=== PATIENT | female | born 1985 | race Caucasian/White ===

== ENCOUNTER 2024-03-28 06:01 | Emergency (ER) | payer OTHER, SELFPAY ==
[2024-03-28 06:02] VITALS: BMI 33.0
[2024-03-28 06:04] VITALS: BP 130/90
--- NOTE | 2024-03-28 06:11 | ED.GENMED ---
History of Present Illness
General
Chief Complaint: Musculo-Skeletal Complaint
Time Seen by Provider: 03/28/24 06:11
History of Present Illness
History of Present Illness:
TIME OF INITIAL ENCOUNTER: 6:15 AM
HPI: The patient tripped down 2 steps and primarily was turned to pain at the right ankle. She has been nonambulatory since that time due to the rather significant pain. She also bumped her head lightly but is not concerned about that. She denies
any other injury
EXAM:
GENERAL: Well appearing but in mild distress due to pain in the right
HEAD: No evidence of craniofacial trauma
HEENT: Moist oral mucosa
NEUROLOGIC: Excellent strength all extremities, no obvious coordination deficits
PSYCHIATRIC: Appropriate mental status, normal insight and judgement
EXTREMITIES: Nontender, no edema, moves all extremities equally other than some decreased active range of motion at the right ankle, there is no bony tenderness at the right foot or ankle. No abnormal findings at the right knee. No significant
soft tissue swelling. Achilles is intact.
SKIN: No rash, no lesions
NUMBER AND COMPLEXITY OF PROBLEMS ADDRESSED AT THE ENCOUNTER
� Chronic conditions affecting care: Inappropriate sinus tachycardia, vertical sleeve gastrectomy, asthma
� Acute Exacerbation and/or Progression of Chronic Illness: This is an acute problem
� Differential Diagnosis includes: Ankle sprain, ankle fracture, foot sprain, foot fracture
AMOUNT AND/OR COMPLEXITY OF DATA TO BE REVIEWED AND ANALYZED
� I performed an independent evaluation of and my interpretation is:
EKG:
CT:
X-rays: I personally reviewed x-rays and see no evidence of fracture
Laboratory Studies:
Other:
� Review of other/old records: I reviewed records, the patient was seen here in February 2022
� Clinical information was obtained by an independent historian:
� Prescriptions/Medications Considered but not given: Considered Motrin however the patient has history of sleeve gastrectomy therefore will only use Tylenol
� Further testing considered but not performed: No indication for MRI at this point
RISK OF COMPLICATIONS AND/OR MORBIDITY OR MORTALITY OF PATIENT MANAGEMENT
� Social determinants of health affecting care: Lives at home
� Discussion with other providers:
� Escalation of care including admission/observation vs risk of discharge considered: X-ray obtained. Air splint and crutches given.
ANY OTHER UPDATES:
Past History
Past History
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
ED Past Surgical History: Other (gastric sleeve ')
Social History
Tobacco: Non-smoker
Phy Exam
Physical Exam
Physical Exam:
See HPI
Course
Orders/Labs/Results
Orders:
Orders
03/28/24 06:07
Ankle, Right 3 view CR [CR Ankle - Right Min 3 Views *] Urgent
Comment:
Reason For Exam: FALL FELT A POP/CRACK
03/28/24 06:22
Air Splint Right-Treatment ONCE
Crutches-Treatment ONCE
Acetaminophen [Tylenol] 1,000 mg PO NOW STA
Vital Signs
Initial and Last Documented VS:
Initial Vital Signs
Temp Pulse Resp BP Pulse Ox
98.1 F 98 16 130/90 98
03/28/24 06:04 03/28/24 06:04 03/28/24 06:04 03/28/24 06:04 03/28/24 06:04
Last Documented Vital Signs
Temp Pulse Resp BP Pulse Ox
98.1 F 98 16 130/90 98
03/28/24 06:04 03/28/24 06:04 03/28/24 06:04 03/28/24 06:04 03/28/24 06:04
*Critical Care Note
Total Time (30-74mins, 75-104mins- exclusive of procedures): Not Applicable
ED Attending Note
-
Portions of this chart may have been created with voice recognition software.� Occasional wrong word or��sound alike� substitutions may have occurred due to the inherent limitations of voice recognition software.
Discharge Plan
Departure
Patient Disposition: Home (Routine Discharge)
Date of Disposition: 03/28/24
Time of Disposition: 06:23
Patient with high blood pressure during this ER visit?: Yes
Discharge Problem:
Right ankle sprain
Instructions: Ankle Sprain ED
Referrals:
Melody Paulson I., DO [Active] - Follow up in 2-3 days
Activity Restrictions/Additional Instructions:
Tylenol would be safest for pain. I see no sign of fracture on the x-ray. If pain persists, follow-up with orthopedics such as Dr. Paulson.
Interventions
Interventions:
*Risk Screen - Suicide Last Done: 03/28/24 06:04
*General Assessment Last Done: 03/28/24 06:22
*Neglect/Abuse Screening Last Done: 03/28/24 06:04
*ED COVID-19 Vaccine History Last Done: 03/28/24 06:22
ED-Musculoskeletal Assessment Last Done: 03/28/24 06:21
Discharge Date and Time
Print Language: ICELANDIC
[2024-03-28] MEDS: TYLENOL 1000 MG PO (06:25)
== END 2024-03-28 06:50 | disposition home or self-care (01) ==
LOC: EMR 06:01
PROVIDERS: EMERGENCY PHYSICIAN Emergency Medicine; FAMILY PHYSICIAN Internal Medicine
DX: S93.401A Sprain of unspecified ligament of right ankle, initial encounter (principal); W10.9XXA Fall (on) (from) unspecified stairs and steps, initial encounter; J45.909 Unspecified asthma, uncomplicated
CPT/HCPCS: 29515; 99283; 73610

== ENCOUNTER → 2024-04-05 14:22 | Outpatient (REF) | payer OTHER, SELFPAY | LOC: RAD 14:22 | PROVIDERS: ATTENDING PHYSICIAN Physician Assistant Medical | DX: M79.671 Pain in right foot (principal) | CPT/HCPCS: 73630 ==

== ENCOUNTER 2024-09-24 07:47 | Emergency (ER) | payer OTHER, SELFPAY ==
[2024-09-24 07:55] VITALS: BP 111/88
[2024-09-24] MEDS: DUONEB 3 ML INH (08:00)
[2024-09-24 08:07] VITALS: BP 111/88
--- NOTE | 2024-09-24 08:10 | ED.GENMED ---
History of Present Illness
General
Chief Complaint: Breathing Problem
Time Seen by Provider: 09/24/24 07:53
History of Present Illness
History of Present Illness:
39-year-old female with history of asthma presents to the emergency department for evaluation of abrupt onset of shortness of breath and chest tightness beginning at 7 AM today. She has used albuterol MDI several times with minimal improvement.
Reports pleuritic discomfort as well. Feels comparable to past bouts of asthma. No recent fevers or chills. Persistent dry cough noted on arrival. She has contraceptive implant, not on estrogen. She did also undergo a foot surgery approximately
2 months ago and was wearing an orthopedic boot for 1 month but denies any calf pain or leg swelling at this time. No prior history of VTE
Past History
Past History
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
ED Past Surgical History: Other (gastric sleeve '14)
Social History
Tobacco: Non-smoker
Review of Systems
Review of Systems
Allergies reviewed?: Yes
All Other Systems: ROS reviewed and negative except as documented in HPI and ROS
Phy Exam
Physical Exam
Physical Exam:
GEN: Well appearing, NAD, WDWN
HEENT: Oral mucosa moist, no scleral icterus
Cardiac: Profoundly tachycardic, regular
Lung: Frequent dry cough, unable to take full inspiration, lungs are globally clear with no wheezes or rales
MSK: No gross deformity or injuries, no calf edema or tenderness
Skin: Good color, no pallor or jaundice, no rashes
Neuro: AO x3, moves all extremities freely
Psych: Calm, cooperative
Course
Orders/Labs/Results
Orders:
Orders
09/24/24
Electrocardiogram (*1) Stat
Reason for Study: Tachycardia
09/24/24 07:57
Ipratropium/Albuterol Sulfate [Duoneb] 3 ml INH R NOW ONE
Test Result ONCE
CR Chest Portable - 1 View Urgent
Comment:
Reason For Exam: SOB
Reason Study Needs to be Portable: Other
09/24/24 08:04
Complete Blood Count/With Diff Urgent
Comprehensive Metabolic Panel Urgent
D-Dimer Urgent
HCG, Serum Qualitative Screen Urgent
09/24/24 09:41
CT Chest PE Study Urgent
Comment:
Reason For Exam: SOB, elevated dimer
Abnormal Lab Results
09/24/24
08:04
Plt Count 467 H 10^3/uL
(130-400)
D-Dimer 0.62 H ug/mlFEU
(0.00-0.50)
09/24/24 08:04
09/24/24 08:04
Vital Signs
Initial and Last Documented VS:
Initial Vital Signs
Pulse Resp Pulse Ox
160 20 99
09/24/24 07:50 09/24/24 07:50 09/24/24 07:50
Last Documented Vital Signs
Temp Pulse Resp BP Pulse Ox
98.4 F 118 19 129/85 99
09/24/24 08:07 09/24/24 11:00 09/24/24 11:00 09/24/24 10:30 09/24/24 10:45
MDM/Problems Addressed
MDM/Problems Addressed:
Imaging obtained due to elevated D-dimer in the presence of shortness of breath and clear lungs, this was reassuring. Likely symptoms secondary to asthma exacerbation. Improved at time of discharge. Will cover for bronchospasm with steroids and
new inhalers provided
*Critical Care Note
Total Time (30-74mins, 75-104mins- exclusive of procedures): Not Applicable
ED Attending Note
-
Portions of this chart may have been created with voice recognition software.� Occasional wrong word or��sound alike� substitutions may have occurred due to the inherent limitations of voice recognition software.
Discharge Plan
Departure
Patient Disposition: Home (Routine Discharge)
Date of Disposition: 09/24/24
Time of Disposition: 10:58
Patient with high blood pressure during this ER visit?: No
Discharge Problem:
Acute bronchospasm
Instructions: Asthma, Adult (DC)
Prescriptions:
New
methylprednisolone [Medrol (Chaim)] 4 mg tablets,dose pack
See Rx Instructions .ROUTE .COMPLEX Qty: 21 0RF
Rx Instructions:
for 6 days
albuterol sulfate 90 mcg/actuation HFA aerosol inhaler
2 puff inhalation Q6H PRN (Reason: shortness of breath or wheezing) Qty: 6.7 0RF
Referrals:
James Lea MD [Family Provider] -
Interventions
Interventions:
*Risk Screen - Suicide Last Done: 09/24/24 07:50
*General Assessment Last Done: 09/24/24 08:10
*Neglect/Abuse Screening Last Done: 09/24/24 07:50
*ED- Fall Risk Assessment Last Done: 09/24/24 08:10
*ED COVID-19 Vaccine History Last Done: 09/24/24 08:10
*Nursing Disposition Last Done: 09/24/24 11:05
ED- Cardiac Assessment Last Done: 09/24/24 08:08
ED- Pulmonary Assessment Last Done: 09/24/24 08:08
Discharge Date and Time
Discharge Date/Time: 09/24/24 11:06
Print Language: YAKUT
[2024-09-24 08:11] LABS: % Basophils 0.9 % (0-2); % Immature Granulocytes 0.1 % (0-0.5); % Lymphocytes 31.1 % (20.5-51.1); % Monocytes 7.7 % (1.7-9.3); % Neutrophils 59.2 % (42.2-75.2); Absolute Basophils 0.1 10^3/uL (0-0.2); Absolute Eosinophils 0.1 10^3/uL (0-0.7); Absolute Lymphocytes 2.5 10^3/uL (1.2-3.4); Absolute Monocytes 0.6 10^3/uL (0.1-0.6); Absolute Neutrophils 4.8 10^3/uL (1.4-6.5); Hematocrit 40.1 % (37.0-47.0); Hemoglobin 13.5 g/dL (12.0-16.0); Mean Corp Hgb Conc. 33.7 g/dL (33.0-37.0); Mean Corpuscular Volume 83.2 fL (81.0-99.0); Mean Platelet Volume 9.5 fL (7.4-10.4); Nucleated Red Blood Cells % 0 %; Platelet Count 467 10^3/uL (130-400); Red Blood Cell Count 4.82 10^6/uL (4.20-5.40); Red Cell Dist. Width 13.5 % (11.5-14.5); White Blood Cell Count 8.1 10^3/uL (4.8-10.8)
[2024-09-24 08:12] VITALS: BP 129/89; BMI 35.3
[2024-09-24 08:25] LABS: HCG, Serum Qualitative Screen Negative
[2024-09-24 08:27] LABS: D-Dimer 0.62 ug/mlFEU (0.00-0.50)
[2024-09-24 08:35] LABS: ALT (SGPT) 17 U/L (0-35); AST (SGOT) 20 U/L (14-36); Albumin 4.8 g/dl (3.5-5.0); Alkaline Phosphatase 71 U/L (38-126); Blood Urea Nitrogen 10 mg/dl (7-17); Calcium 9.8 mg/dl (8.4-10.2); Carbon Dioxide 23 mmol/L (22-30); Chloride 105 mmol/L (98-107); Estimated Creatinine Clearance > 125 ml/min; Glucose 90 mg/dl (70-99); Potassium 3.6 mmol/L (3.5-5.1); Sodium 142 mmol/L (135-145); Total Bilirubin 0.8 mg/dl (0.2-1.3); Total Protein 7.6 g/dl (6.3-8.2); eGFR > 60.00
[2024-09-24 09:00] VITALS: BP 132/79
[2024-09-24 10:30] VITALS: BP 129/85
== END 2024-09-24 11:06 | disposition home or self-care (01) ==
LOC: EMR 07:47
PROVIDERS: Physician Assistant; EMERGENCY PHYSICIAN Emergency Medicine; FAMILY PHYSICIAN Internal Medicine
DX: J98.01 Acute bronchospasm (principal); Z98.84 Bariatric surgery status; F90.9 Attention-deficit hyperactivity disorder, unspecified type
CPT/HCPCS: 99284; 94640; 71045; 71275; 80053; 84703; 85025; 85379; 93005; Q9967